=== PATIENT | male | born 1995 | race Caucasian/White ===

== ENCOUNTER 2024-08-19 11:17 | Emergency (ER) | payer BC ==
[~2024-08-19] VITALS: Ht 177.8 cm; Wt 90.7 kg
[2024-08-19 11:20] VITALS: TEMP 98.2
[2024-08-19] MEDS ORDERED: LIDOCAINE 1%-EPI 1:100,000 20 ML VIAL ONE (11:37)
[2024-08-19] MEDS ORDERED: MORPHINE SULFATE INJ 4 MG/ML DISP.SYRIN ONE (11:52)
[2024-08-19] MEDS ORDERED: ONDANSETRON HCL/PF 4 MG/2 ML VIAL ONE (11:52)
[2024-08-19] MEDS: ONDANSETRON HCL/PF 4 MG/2 ML VIAL IVP ONE (11:55)
[2024-08-19] MEDS: MORPHINE SULFATE INJ 2 MG/ML DISP.SYRIN IV ONE (11:59)
[2024-08-19] MEDS: IV NS 0.9% 1,000 ML BAG IV ONE (12:04)
[2024-08-19] MEDS: CEFAZOLIN 1 GM in IV D5W 50 ML IV ONE (12:10)
[2024-08-19] MEDS: LIDOCAINE 1%-EPI 1:100,000 50 ML VIAL IJ ONE (12:11)
[2024-08-19] MEDS ORDERED: CEPH-570 PO (13:12)
[2024-08-19] MEDS ORDERED: NAPR-1164 PO (13:12)
[2024-08-19] MEDS ORDERED: TDAP [DIPH/PERTUSSIS/TET] 0.5 ML VIAL IM ONE (13:25)
[2024-08-19] MEDS: TDAP [DIPH/PERTUSSIS/TET] 0.5 ML VIAL IM ONE (13:27)
[2024-08-19 13:42] VITALS: BP 122/86; O2SAT 100
== END 2024-08-19 13:41 | disposition home or self-care (01) ==
LOC: ER 11:39
DX: S61.412A Laceration without foreign body of left hand, initial encounter (principal); Z60.2 Problems related to living alone; W25.XXXA Contact with sharp glass, initial encounter; Y93.89 Activity, other specified; Y92.89 Other specified places as the place of occurrence of the external cause; Y99.8 Other external cause status
CPT/HCPCS: 12002; 73130; 90471; 90715; 96365; 96375; 99284; A6403; J0690; J2270; J2405; J3490; J7030; J7060